=== PATIENT | male | born 2000 | race Two or more races ===

== ENCOUNTER 2020-10-01 19:47 | Emergency (ER) | payer MEDICAID, OTHER ==
[~2020-10-01] VITALS: Ht 182.9 cm; Wt 86.2 kg
[2020-10-01] MEDS ORDERED: ACETAMINOPHEN 325 MG TAB PO ONE (20:45)
[2020-10-02] MEDS ORDERED: KETOROLAC TROMETH 60MG/2ML VIAL IM ONE
[2020-10-02 00:29] VITALS: BP 133/89
== END 2020-10-02 00:39 | disposition home or self-care (01) ==
LOC: ER 19:53
DX: S46.911A Strain of unspecified muscle, fascia and tendon at shoulder and upper arm level, right arm, initial encounter (principal); S63.501A Unspecified sprain of right wrist, initial encounter; S53.401A Unspecified sprain of right elbow, initial encounter; W18.09XA Striking against other object with subsequent fall, initial encounter; Y93.89 Activity, other specified; Y92.89 Other specified places as the place of occurrence of the external cause; Y99.8 Other external cause status
CPT/HCPCS: 29125; 71045; 73030; 73090; 96372; 99284; J1885